=== PATIENT | male | born 1945 | race Caucasian/White ===

== ENCOUNTER 2016-08-12 12:22 | Day surgery (SDC) | payer OTHER ==
[~2016-08-12 12:22] MED LIST: LR 1,000 ML ONE
--- NOTE | 2016-08-12 13:33 | EKG Report ---
Test Performed on : 08/12/2016 1:24:18 PM Test Reason : pre-op Blood Pressure : / mmHG Vent. Rate : 059 BPM Atrial Rate : 059 BPM P-R Int : 220 ms QRS Dur : 080 ms QT Int : 400 ms P-R-T Axes : 035 -12 019 degrees QTc Int : 396 ms Sinus bradycardia. with 1st degree AV block. Low voltage QRS Inferior infarct , age undetermined Abnormal ECG No previous ECGs available Confirmed by Mercedez SHELTON, Yg Apodaca ([id number]) on 08/13/2016 5:22:45 PM
[2016-08-12] MEDS ORDERED: DIPRIVAN 1% 0 ML ONE (14:00)
[2016-08-12] MEDS ORDERED: MYLICON DROPS (DOSE) MISC ONE (14:51)
[2016-08-12 16:25] VITALS: BP 137/59
[2016-08-12] MEDS ORDERED: DIPRIVAN 1% ONE (18:11)
--- NOTE | 2016-08-12 20:01 | OPERATIVE NOTE ---
PROCEDURE DATE: 08/12/2016 REFERRING PHYSICIAN: Danilo Núñez MD. INDICATIONS FOR PROCEDURE: 1. Heartburn. 2. Iron-deficiency anemia. 3. Heme-positive stools. 4. Unplanned weight loss. 5. Unexplained vitamin B12 deficiency. 6. Unexplained vitamin D deficiency. PROCEDURE PERFORMED: Esophagogastroduodenoscopy with by biopsy. CONSENT: Informed consent was obtained from the patient prior to the procedure. The risks, benefits, and alternatives were discussed with the patient and his . MEDICATIONS: The patient received monitored anesthesia care. PERFORMING PHYSICIAN: Irina Leija MD. ASSISTANTS: 1. ST Est[facility]. 2. Gume Leung RN. 3. Cristian Nieves CRNA. 4. Kristofer Giron MD (Anesthesia). COMPLICATIONS: There were no complications. ESTIMATED BLOOD LOSS: Less than 1 mL. SPECIMENS REMOVED: 1. Duodenal biopsy. 2. Gastric biopsy. FINDINGS: After sedation was achieved, the upper endoscope was inserted to the 2nd portion of the duodenum. The hypopharynx appeared endoscopically normal. The tubular esophagus was normal. The GE junction was measured at 40 cm from the incisors. There was a hiatal hernia that spanned from 40-45 cm. In the gastric lumen, there was erosive gastritis. In the fundus, there were small nonbleeding polyps, but the fundus appeared otherwise unremarkable. The pylorus was widely patent. There was mild erythema in the duodenal bulb consistent with duodenitis. There were nonbleeding AVMs in the 2nd portion of the duodenum. Upon withdrawal of the scope, there were also nonbleeding AVMs present in the gastric lumen. After biopsies were taken from the duodenal and gastric mucosa, the lumen was decompressed and the scope was removed without incident. IMPRESSION: 1. Hiatal hernia. 2. Erosive gastritis. 3. Gastric polyps. 4. Nonbleeding gastric arteriovenous malformations. 5. Mild duodenitis limited to the bulb. 6. Nonbleeding duodenal arteriovenous malformations. RECOMMENDATION: 1. Await biopsy results. 2. Continue Prilosec 40 mg daily. 3. Add Carafate 1 g 4 times a day for 12 week, then stop. 4. We will proceed with a colonoscopy as previously scheduled. 5. Return to clinic after testing is complete for followup any value reevaluation.
--- NOTE | 2016-08-12 20:04 | OPERATIVE NOTE ---
PROCEDURE DATE: 08/12/2016 REFERRING PHYSICIAN: Danilo Núñez MD. INDICATION FOR PROCEDURE: 1. Unexplained iron-deficiency anemia. 2. Heme-positive stools. 3. Unplanned weight loss. 4. Rectal bleeding. PROCEDURE PERFORMED: 1. Colonoscopy with control of bleeding. 2. Colonoscopy with biopsy. 3. Colonoscopy with Johnna ink tattoo placement. CONSENT: Informed consent was obtained from the patient prior to the procedure. The risks, benefits, and alternatives were discussed. MEDICATION: The patient received monitored anesthesia care. PERFORMING PHYSICIAN: Irina Leija MD. ASSISTANTS: 1. ST Estela. 2. Gume Leung RN. 3. Cristian Nieves CRNA. 4. Kristofer Giron MD (Anesthesia). COMPLICATIONS: There were no complications. ESTIMATED BLOOD LOSS: Less than 1 mL. SPECIMENS: Removed: Cecal polyp biopsy. CECAL INTUBATION TIME: 10 minutes. WITHDRAWAL TIME: 26 minutes. PREP QUALITY: Fair. FINDINGS: After sedation was achieved, the pediatric colonoscope was inserted to the cecum. The ileocecal valve and appendiceal orifice appeared endoscopically normal. In the cecal base, there was a greater than 2 cm polyp that wrapped around the base of the cecum. Multiple biopsies were taken. In addition, Johnna ink 0.5 mL x4 for a total of 2 mL was injected circumferentially around the base of the polyp. Adjacent to the polyp was a large AVM. Although was not actively bleeding, it was very hyperemic with raised edges suggestive of recent bleeding. The AVM was ablated using black wire cautery. Upon further withdrawal, the colonic mucosa appeared grossly normal. There were scattered nonbleeding AVMs in the descending and sigmoid colon with no stigmata of bleeding. In the upper rectum, there were grade 1 internal hemorrhoids. On retroflexed view, there were large external hemorrhoids. Upon withdrawal of the scope through the anal canal, there was possibly an anal fissure present, but there was no active bleeding. IMPRESSION: 1. Large cecal polyp status post biopsy and Johnna ink tattoo. 2. 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 3. Multiple nonbleeding arteriovenous malformations in the descending and sigmoid colon. 4. Grade 1 internal hemorrhoids. 5. Large external hemorrhoids. 6. Probable anal fissure. RECOMMENDATION: 1. Await biopsy results. 2. Begin Anusol HC cream per rectum twice a day for the next 5 days. 3. Depending on the biopsy results, the patient may require surgical resection of the cecal polyp. I will defer a Surgical consult until we have the biopsy results and have a better understanding of his need for definitive management of this polyp. 4. I will order a computed tomography scan of the abdomen and pelvis as our findings today do not account for his item planned weight loss. 5. We will have the patient return to clinic after computed tomography scan to assess interval progress.
[2016-08-13] MEDS ORDERED: XYLOCAINE-MPF 2% ONE (09:42)
[2016-08-13] MEDS ORDERED: LR 1,000 ML ONE (09:42)
== END 2016-08-12 16:20 | disposition home or self-care (01) ==
LOC: ENDO 12:22
PROVIDERS: ATTEND Internal Medicine Gastroenterology
DX: D12.0 Benign neoplasm of cecum (principal); K29.50 Unspecified chronic gastritis without bleeding; K44.9 Diaphragmatic hernia without obstruction or gangrene; K31.7 Polyp of stomach and duodenum; Q27.33 Arteriovenous malformation of digestive system vessel; K29.80 Duodenitis without bleeding; I10 Essential (primary) hypertension; E11.40 Type 2 diabetes mellitus with diabetic neuropathy, unspecified; Z87.891 Personal history of nicotine dependence
CPT/HCPCS: 88305; 88312; 88313; 93005; 93010; J7120